=== PATIENT | female | born 1995 | race African-American/Black ===

== ENCOUNTER 2016-07-23 12:28 | Emergency (ER) | payer OTHER ==
[~2016-07-23] VITALS: Ht 162.6 cm; Wt 54.5 kg
[~2016-07-23 12:28] MED LIST: NOCURR
[2016-07-23 12:34] VITALS: BP 115/77
[2016-07-23] MEDS ORDERED: NAPROXEN 250 MG TABLET PO ONE (13:15)
== END 2016-07-23 13:54 | disposition home or self-care (01) ==
LOC: EMS 12:29
DX: M17.11 Unilateral primary osteoarthritis, right knee (principal)
CPT/HCPCS: 99282

== ENCOUNTER 2017-10-07 17:09 | Emergency (ER) | payer MEDICAID, OTHER ==
[~2017-10-07] VITALS: Ht 167.6 cm; Wt 50.0 kg
[2017-10-07 18:05] LABS: APPEARANCE,URINE CLEAR (CLEAR); BILIRUBIN,URINE NEGATIVE (NEGATIVE); GLUCOSE, URINE (UA) NEGATIVE (NEGATIVE); KETONES,URINE NEGATIVE (NEGATIVE); LEUKOCYTE ESTERASE ,URINE SMALL (NEGATIVE); NITRATE,URINE NEGATIVE (NEGATIVE); OCCULT BLOOD,URINE NEGATIVE (NEGATIVE); PH,URINE 7.5 (5.0-8.0); PROTEIN,URINE NEGATIVE (NEGATIVE)
[2017-10-07 18:41] LABS: BACTERIA,URINE Rare /HPF (None Seen); RBC,URINE 0-2 /HPF (0-2); SQUAMOUS EPITHELIAL CELL,UR Few /LPF (None Seen)
[2017-10-07 18:49] VITALS: BP 118/61
[2017-10-07] MEDS ORDERED: ACETAMINOPHEN 325 MG TABLET PO ONE (19:15)
== END 2017-10-07 19:16 | disposition home or self-care (01) ==
LOC: EMS 17:12
DX: N39.0 Urinary tract infection, site not specified (principal); K59.00 Constipation, unspecified; M19.90 Unspecified osteoarthritis, unspecified site
CPT/HCPCS: 87086; 99284

== ENCOUNTER 2020-09-13 20:24 | Emergency (ER) | payer MEDICAID ==
[~2020-09-13] VITALS: Ht 157.5 cm; Wt 65.5 kg
[2020-09-13 20:29] VITALS: BP 111/78
[2020-09-13] MEDS ORDERED: SODIUM CHLORIDE 0.9% 1,000 ML IV ONE (20:30)
[2020-09-13] MEDS ORDERED: ONDANSETRON HCL 4 MG/2 ML VIAL IVP ONE (20:30)
== END 2020-09-13 21:30 | disposition left against medical advice (07) ==
LOC: EMS 20:27
DX: R10.9 Unspecified abdominal pain (principal); Z53.21 Procedure and treatment not carried out due to patient leaving prior to being seen by health care provider
CPT/HCPCS: J2405; J7030